=== PATIENT | female | born 1995 | race Caucasian/White ===

== ENCOUNTER 2016-10-30 16:08 | Emergency (ER) | payer MEDICAID, OTHER | END 2016-10-30 21:32 | disposition home or self-care (01) | LOC: ER 16:08 | DX: O20.0 Threatened abortion (principal); Z3A.01 Less than 8 weeks gestation of pregnancy | CPT/HCPCS: 36415; 76817; 80048; 81001; 84702; 85025; 86901; 87491; 87591; 87800 ==